=== PATIENT | female | born 1970 | race Caucasian/White ===

== ENCOUNTER 2017-01-08 08:56 | Day surgery (SDC) | payer MEDICARE ==
--- NOTE | 2017-01-07 13:53 | NUR ---
PATIENT INSTRUCTED TO HOLD DEPAKOTE NOW THRU TOMORROW AFTER SURGERY PER DEN SHERIDAN PER DR. BERTRAND. PATIENT VERBALIZES UNDERSTANDING.
[~2017-01-08] VITALS: Ht 172.7 cm; Wt 79.0 kg
[~2017-01-08 08:56] MED LIST: DIVA250T4 PO; HYDR-3708 PO; LACTATED RINGERS 1,000 ML IV SCH; LISI1TAB6 PO; MORP60TA PO; SODIUM CHLORIDE FLUSH 3 ML SYR IV SCH; VENL75CA86 PO
--- OUTSIDE RECORDS SUMMARY | 2017-01-08 09:01 | XMS REPORT | Continuity of Care Document ---
Author Author [facility] Organization [facility] Address Unknown Phone Unavailable Care Team Providers Care Office Rep Name Role Phone Byron Harris PCP [phone] Source Comments Some departments are not documenting in the electronic medical record. If you do not see the information that you expected, contact Release of Information in the Health Information Management department at [phone] for further assistance in locating additional records.[facility] Active Allergies and Adverse Reactions Allergen Noted Date Severity Reactions Comments Betadine 05/15/2012 HIVES Betadine Prepstick 05/15/2012 High HIVES, ANGIOEDEMA Contrast Dye Iv, Iodine 05/31/2010 High ANAPHYLAXIS, HIVES, Containing SYNCOPE Iodine 05/31/2010 ANAPHYLAXIS Current Medications Prescription Sig. Disp. Refills Start End Date Status Date aspirin/acetaminophen/caf Take 2 Tabs by mouth 0 06/09/20 Active feine(+) (EXCEDRIN Every 6 Hours as needed. 10 MIGRAINE) 250/250/65 mg PO Tab lithium carbonate 300 mg Take 300 mg by mouth Active tablet twice daily. sertraline (ZOLOFT) 100 Take 2 Tabs by mouth 60 Tab 0 05/16/20 Active mg tablet daily. 12 HYDROcodone-acetaminophen Take 1 Tab by mouth every 84 Tab 0 05/16/20 Active (VICODIN) 5-500 mg tablet 4 hours as needed for 12 Pain. morphine SR (MS CONTIN; Take 1 Tab by mouth every 60 Tab 05/16/20 Active ORAMORPH SR) 15 mg tablet 8 hours. 12 metFORMIN (GLUCOPHAGE) Take 1,000 mg by mouth Active 500 mg tablet twice daily with meals. insulin glargine (LANTUS Inject 15 Units into 1 box 11 06/25/20 Active SOLOSTAR) 100 unit/mL (3 area(s) as directed at 12 mL) injection PEN bedtime daily. cholecalciferol (Vitamin Take 2 Tabs by mouth 90 Tab 3 06/25/20 Active D3) (VITAMIN D-3) 1,000 daily. 12 units tablet HYDROcodone-acetaminophen Take 1 Tab by mouth every 20 Tab 0 08/10/20 Active (VICODIN) 5-500 mg tablet 4 hours as needed for 12 Pain. 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 Otitis externa of right ear 05/15/2012 Fibromyalgia 05/15/2012 Mood disorder ([facility]) 05/15/2012 Neurodermatitis 05/05/2012 Myalgia 05/05/2012 Arthralgia 05/05/2012 Snoring 05/05/2012 Osteoporosis screening 05/05/2012 Stress fracture of ankle 05/05/2012 Diabetes mellitus ([facility]) 05/05/2012 Steroid long-term use 05/05/2012 Nicotine dependence 05/05/2012 Weakness of both legs 06/01/2010 Contact dermatitis 06/01/2010 Hip pain 06/01/2010 Diarrhea 06/01/2010 Social History Tobacco Use Types Packs/Day Years Used Date Current Every Day Smoker Cigarettes 1 Smokeless Tobacco: Never Used Tobacco Cessation: Ready to Quit: No; Counseling Given: No Comments: Alcohol Use Drinks/Week oz/Week Comments No Last Filed Vital Signs Vital Sign Reading Time Taken Blood Pressure 116/55 08/10/2012 4:30 AM [employer] Pulse 76 08/10/2012 4:30 AM [employer] Temperature 36.9 C (98.5 F) 06/20/2012 8:20 AM CDT Respiratory Rate 18 06/20/2012 8:20 AM CDT Height 1.727 m (5' 8") 06/25/2012 9:00 AM CDT Weight 77.565 kg (171 lb) 06/25/2012 9:00 AM CDT Body Mass Index 26.01 06/25/2012 9:00 AM CDT Oxygen Saturation 95% 08/10/2012 4:30 AM [employer] Plan of Care Health Maintenance Due Date Last Done Comments Physical (Comprehensive) 1979 Exam Pertussis Vaccine 1983 Tetanus Vaccine 1989 Dilated Eye Exam 1990 Foot Exam 1990 Microalbumin 1990 Pneumonia Vaccine (Dm) 1990 Cervical Cancer Screening 1993 Breast Cancer Screening 2012 Hba1c 12/23/2012 06/25/2012, 05/05/2012 Influenza Vaccine 06/07/2017 Results from Last 3 Months Not on file
[2017-01-08 09:13] VITALS: BP 125/74
[2017-01-08] MEDS ORDERED: OXYMETAZOLINE 0.05% NASAL SPRAY (AFRIN) 15 ML BTL ONE (09:38)
[2017-01-08] MEDS ORDERED: LIDOCAINE/EPINEPHRINE 1% 1:100,000 (XYLOCAINE) 30 ML VIAL INJ ONE (09:39)
[2017-01-08] MEDS ORDERED: MUPIROCIN 2% OINT 22 GM (BACTROBAN) TUBE TOP ONE (09:39)
[2017-01-08] MEDS: OXYMETAZOLINE 0.05% NASAL SPRAY (AFRIN) 15 ML BTL SCH ×3 (09:51→10:00)
[2017-01-08] MEDS ORDERED: PROPOFOL 20 ML IV ONE (10:07)
[2017-01-08] MEDS ORDERED: ALFENTANIL 1,000 MCG/2 ML AMP IV ONE (10:07)
[2017-01-08] MEDS ORDERED: SUCCINYLCHOLINE 20 MG/ML 10 ML VIAL ONE (10:07)
[2017-01-08] MEDS ORDERED: ONDANSETRON 2 MG/ML (Z0FRAN) 2 ML VIAL ONE (11:55)
[2017-01-08] MEDS ORDERED: diphenhydrAMINE 50 MG/ML INJ (BENADRYL) ONE (11:55)
[2017-01-08 12:17] VITALS: BP 148/91
[2017-01-08] MEDS ORDERED: ONDANSETRON 2 MG/ML (Z0FRAN) 2 ML VIAL IV PRN (12:20)
[2017-01-08] MEDS ORDERED: ACETAMINOPHEN/CODEINE 300MG/30 MG (TYLENOL #3) TABLET PO PRN (12:20)
[2017-01-08] MEDS ORDERED: morphine INJ 2 MG/ML 1 ML SYRINGE IV PRN (12:25)
[2017-01-08 12:33] VITALS: BP 164/74
[2017-01-08 12:48] VITALS: BP 116/74
[2017-01-08 13:00] VITALS: BP 127/74
[2017-01-08] MEDS ORDERED: HYPERTONIC SALINE IRRIGATION 1000 ML BTL IR SCH (21:00)
--- NOTE | 2017-01-10 11:10 | OPERATIVE REPORT ---
DATE OF OPERATION: 01/08/2017 [facility] NO: [id number] PRE-OPERATIVE DIAGNOSIS: 1. Left frontal sinusitis, left maxillary sinusitis, left ethmoid sinusitis, and left sphenoid sinusitis. 2. Right frontal sinusitis, right maxillary sinusitis, right ethmoid sinusitis, and right sphenoid sinusitis POST-OPERATIVE DIAGNOSIS: 1. Left frontal sinusitis and left sphenoid sinusitis. 2. Right frontal sinusitis and right sphenoid sinusitis. OPERATIVE PROCEDURE: 1. Left frontal sinus balloon sinuplasty. 2. Left sphenoid balloon sinuplasty. 3. Right frontal sinus balloon sinuplasty. 4. Right sphenoid balloon sinuplasty. SURGEON: Chris Vidal M.D. ANESTHESIA: General endotracheal INDICATIONS: This is a 46-year-old female with a history of chronic sinusitis and previous sinus surgeries. OPERATIVE FINDINGS: The maxillary sinuses were opened on both sides. She was extremely narrow in the frontal recess at the sphenoethmoid recess on both the left and right sides. OPERATIVE NOTE: Following informed consent the patient was taken to the operating room and placed in the supine position. Satisfactory general endotracheal anesthesia was obtained. She was prepped for surgery with Afrin Nasal [place] and 1% lidocaine with epinephrine. LEFT FRONTAL SINUS BALLOON SINUPLASTY AND LEFT SPHENOID SINUS BALLOON SINUPLASTY: The left side of the nose was endoscopically evaluated using a 0-degree 4-mm telescope. The middle meatus was opened and showed evidence of previous surgery. The maxillary antrum is surgically opened and no significant findings from within the sinus. The maxillary sinus was irrigated and suctioned until clear. Next using the Acclarent balloon, the frontal recess was addressed endoscopically and a guidewire was placed into the frontal sinus. A 6 mm balloon was advanced into the frontal sinus and this was opened with a pressure of 12 atmospheres of water. Following this, the frontal sinus was irrigated and suctioned. There was some polypoid tissue in the anterior ethmoid suggesting chronic infection. Next medial to the middle turbinate, the sphenoid sinus guide was used to identify the natural ostium of the sphenoid sinus. This was opened widely using the suction microdebrider and some heavy mucous was removed from the sphenoid sinus. All of the sinuses in this side of the nose were irrigated with saline and suctioned until clear. RIGHT FRONTAL SINUS BALLOON SINUPLASTY AND RIGHT SPHENOID SINUS BALLOON SINUPLASTY: The right side of the nose was endoscopically evaluated using a 0-degree 4-mm telescope. The middle meatus was opened and showed evidence of previous surgery. The maxillary antrum is surgically opened and no significant findings from within the sinus. The maxillary sinus was irrigated and suctioned until clear. Next using the Acclarent balloon, the frontal recess was addressed endoscopically and a guidewire was placed into the frontal sinus. A 6 mm balloon was advanced into the frontal sinus and this was opened with a pressure of 12 atmospheres of water. Following this, the frontal sinus was irrigated and suctioned. There was some polypoid tissue in the anterior ethmoid suggesting chronic infection. Next medial to the middle turbinate, the sphenoid sinus guide was used to identify the natural ostium of the sphenoid sinus. This was opened widely using the suction microdebrider and some heavy mucous was removed from the sphenoid sinus. All of the sinuses in this side of the nose were irrigated with saline and suctioned until clear. The patient was awakened and taken to the recovery room in good condition.
== END 2017-01-08 13:06 | disposition home or self-care (01) ==
LOC: ASC 08:56
PROVIDERS: ATTEND Otolaryngology
DX: J32.1 Chronic frontal sinusitis (principal); J32.3 Chronic sphenoidal sinusitis; M35.2 Behcet's disease; G47.30 Sleep apnea, unspecified; F17.200 Nicotine dependence, unspecified, uncomplicated
CPT/HCPCS: 31296; 31297; 36415; 84132; A9270; J0330; J1200; J2270; J7120